=== PATIENT | female | born 1960 | race Caucasian/White ===

== ENCOUNTER → 2018-02-04 | Outpatient (CLI) | payer OTHER ==
[~2018-02-04] MED LIST: AMOCLA875; AMOCLA875 PO; BECL25NI; Bactrim Ds Tab1 EACH PO; CALCAVITDA PO; CEPH500 PO; CHLO25 PO; DULO30; Librium25 MG PO; MOMENI; NAPR500 PO; OXYACE10; OXYACE10 PO; OXYACE5T PO; OXYC20ER; VITAMINS; [UNRECOGNIZED DRUG - REMARK]
== END | disposition home or self-care (01) ==
LOC: LAB EV 10:14 → LAB SHORT 10:14
DX: N39.0 Urinary tract infection, site not specified (principal)
CPT/HCPCS: 87077; 87086; 87186

== ENCOUNTER → 2018-12-05 | Outpatient (CLI) | payer OTHER ==
[2018-12-05 11:01] LABS: BASOPHILS ABSOLUTE AUTO 0.03 K/mm3 (0.00-0.23); BASOPHILS PERCENT AUTO 1 % (0-2); EOSINOPHILS ABSOLUTE AUTO 0.05 K/mm3 (0.00-0.68); EOSINOPHILS PERCENT AUTO 1 % (0-6); Hematocrit 38.4 % (33.0-51.0); Hemoglobin 12.8 g/dL (11.5-16.0); IMMATURE GRAN ABSOLUTE AUTO 0.01 K/mm3 (0.00-0.10); IMMATURE GRAN PERCENT AUTO 0 % (0-1); LYMPHOCYTES ABSOLUTE AUTO 1.64 K/mm3 (0.84-5.20); LYMPHOCYTES PERCENT AUTO 30 % (21-46); MONOCYTES PERCENT AUTO 11 % (4-13); Mean Corpuscular HGB 32.1 pg (26.0-34.0); Mean Corpuscular HGB Conc 33.3 g/dL (31.5-36.5); Mean Corpuscular Volume 96 fL (80-100); Mean Platelet Volume 9.2 fL (9.1-12.4); NEUTROPHILS ABSOLUTE AUTO 3.13 K/mm3 (1.96-9.15); NEUTROPHILS PERCENT AUTO 57 % (41-73); Platelet Count 378 K/mm3 (150-400); RDW Coefficient Variation 12.9 % (11.7-14.2); RDW Standard Deviation 45.5 fL (35.1-46.3); Red Blood Cell Count 3.99 M/mm3 (3.80-5.20); White Blood Cell Count 5.46 K/mm3 (4.00-11.30)
[2018-12-05 11:21] LABS: Alanine Aminotransfer (ALT/SGP 16 U/L (12-78); Albumin, Blood 3.8 g/dL (3.4-5.0); Albumin/Globulin Ratio 0.9 (0.8-1.8); Alk Phos 58 U/L (40-126); Anion Gap 11 mmol/L (6-16); Aspartate Aminotrans (AST/SGOT 18 U/L (12-37); Bilirubin, Total 0.4 mg/dL (0.1-1.0); Blood Urea Nitrogen 10 mg/dL (8-24); Bun/Creatinine Ratio 13.5 (12.0-20.0); CO2, Blood 26 mmol/L (21-32); Calcium, Blood 9.6 mg/dL (8.5-10.1); Chloride, Blood 104 mmol/L (98-108); Creatinine, Blood 0.74 mg/dL (0.40-1.00); Globulin, Blood 4.3 g/dL (2.2-4.0); Glomerular Filtration Rate >60 (60-); Glucose, Blood 105 mg/dL (70-99); Potassium, Blood 3.8 mmol/L (3.5-5.5); Sodium, Blood 141 mmol/L (136-145); Thyroid Stimulating Hormone 1.161 uIU/mL (0.360-4.800); Total Protein, Blood 8.1 g/dL (6.4-8.2)
== END ==
LOC: LAB SHORT 10:55 → LAB EV 10:55
PROVIDERS: Emergency Medicine
DX: R35.0 Frequency of micturition (principal); R53.83 Other fatigue
CPT/HCPCS: 80053; 83036; 84443; 85025

== ENCOUNTER → 2019-01-07 | Outpatient (CLI) | payer OTHER | LOC: LAB SHORT 15:21 → LAB EV 15:21 | DX: R06.02 Shortness of breath (principal) | CPT/HCPCS: 85379 ==

== ENCOUNTER 2019-04-02 14:05 | Emergency (ER) | payer OTHER ==
[~2019-04-02] VITALS: Ht 152.4 cm; Wt 40.8 kg
[~2019-04-02 14:05] MED LIST changes: +Keflex500 MG PO; +Zofran4 MG PO
[2019-04-02 14:39] LABS: BASOPHILS ABSOLUTE AUTO 0.01 K/mm3 (0.00-0.23); BASOPHILS PERCENT AUTO 0 % (0-2); EOSINOPHILS ABSOLUTE AUTO 0.07 K/mm3 (0.00-0.68); EOSINOPHILS PERCENT AUTO 1 % (0-6); Hematocrit 46.3 % (33.0-51.0); Hemoglobin 14.8 g/dL (11.5-16.0); IMMATURE GRAN ABSOLUTE AUTO 0.02 K/mm3 (0.00-0.10); IMMATURE GRAN PERCENT AUTO 0 % (0-1); LYMPHOCYTES ABSOLUTE AUTO 1.15 K/mm3 (0.84-5.20); LYMPHOCYTES PERCENT AUTO 21 % (21-46); MONOCYTES ABSOLUTE AUTO 0.57 K/mm3 (0.16-1.47); MONOCYTES PERCENT AUTO 10 % (4-13); Mean Corpuscular HGB 30.8 pg (26.0-34.0); Mean Corpuscular Volume 97 fL (80-100); Mean Platelet Volume 9.6 fL (9.1-12.4); NEUTROPHILS PERCENT AUTO 68 % (41-73); Platelet Count 358 K/mm3 (150-400); RDW Standard Deviation 53.7 fL (35.1-46.3); White Blood Cell Count 5.62 K/mm3 (4.00-11.30)
[2019-04-02 14:57] LABS: Albumin, Blood 4.4 g/dL (3.4-5.0); Bilirubin, Total 0.2 mg/dL (0.1-1.0); Bun/Creatinine Ratio 16.8 (12.0-20.0); Calcium, Blood 9.3 mg/dL (8.5-10.1); Creatinine, Blood 1.13 mg/dL (0.40-1.00); Globulin, Blood 4.6 g/dL (2.2-4.0); Potassium, Blood 3.9 mmol/L (3.5-5.5)
[2019-04-02] MEDS ORDERED: ONDA4ODT MM (18:48)
== END 2019-04-02 18:56 | disposition home or self-care (01) ==
LOC: ER 14:05
PROVIDERS: Physician Assistant
DX: E86.0 Dehydration (principal); R19.7 Diarrhea, unspecified; R11.0 Nausea
CPT/HCPCS: 36415; 80053; 84484; 85025; 93005; 93010; 96361; 96374; 96375; 99284-25; A9270-GY; J1885; J2405; J7120

== ENCOUNTER → 2019-04-03 | Outpatient (CLI) | payer OTHER ==
[~2019-04-03] MED LIST changes: +ONDA4ODT MM
== END | disposition home or self-care (01) ==
LOC: LAB EV 14:48 → LAB SHORT 14:48
DX: N39.0 Urinary tract infection, site not specified (principal)
CPT/HCPCS: 87077; 87086; 87186

== ENCOUNTER → 2019-06-07 | Outpatient (CLI) | payer OTHER ==
[~2019-06-07] MED LIST changes: +BENADRYL25 MG; +MELO7.5; +Monurol3 GM PO; +OXYB5 PO
== END | disposition home or self-care (01) ==
LOC: LAB SHORT 15:18 → LAB EV 15:18
DX: N12 Tubulo-interstitial nephritis, not specified as acute or chronic (principal)
CPT/HCPCS: 87077; 87086; 87186

== ENCOUNTER 2019-07-10 14:29 | Emergency (ER) | payer OTHER ==
[~2019-07-10] VITALS: Ht 152.4 cm; Wt 43.1 kg
[~2019-07-10 14:29] MED LIST changes: -BENADRYL25 MG; -MELO7.5; -Monurol3 GM PO; -OXYB5 PO
[2019-07-10 15:31] LABS: Source, Urine Clean Catch
[2019-07-10 15:34] LABS: BASOPHILS ABSOLUTE AUTO 0.06 K/mm3 (0.00-0.23); BASOPHILS PERCENT AUTO 1 % (0-2); EOSINOPHILS ABSOLUTE AUTO 0.35 K/mm3 (0.00-0.68); EOSINOPHILS PERCENT AUTO 5 % (0-6); Hematocrit 38.4 % (33.0-51.0); Hemoglobin 12.6 g/dL (11.5-16.0); IMMATURE GRAN ABSOLUTE AUTO 0.01 K/mm3 (0.00-0.10); IMMATURE GRAN PERCENT AUTO 0 % (0-1); LYMPHOCYTES ABSOLUTE AUTO 2.85 K/mm3 (0.84-5.20); LYMPHOCYTES PERCENT AUTO 42 % (21-46); MONOCYTES ABSOLUTE AUTO 0.73 K/mm3 (0.16-1.47); MONOCYTES PERCENT AUTO 11 % (4-13); Mean Corpuscular HGB Conc 32.8 g/dL (31.5-36.5); Mean Corpuscular Volume 98 fL (80-100); Mean Platelet Volume 10.2 fL (9.1-12.4); NEUTROPHILS ABSOLUTE AUTO 2.83 K/mm3 (1.96-9.15); NEUTROPHILS PERCENT AUTO 42 % (41-73); Platelet Count 300 K/mm3 (150-400); RDW Coefficient Variation 13.9 % (11.7-14.2); RDW Standard Deviation 50.4 fL (35.1-46.3); Red Blood Cell Count 3.94 M/mm3 (3.80-5.20); White Blood Cell Count 6.83 K/mm3 (4.00-11.30)
[2019-07-10 15:35] LABS: Bilirubin, Urine Neg (Neg); Blood, Urine 1+ (Neg); Glucose Qualitative, Urine Neg (Neg); Ketones, Urine Neg (Neg); Leukocyte Esterase, Urine 3+ (Neg); Nitrite, Urine Pos (Neg); Protein, Urine Neg (Neg); Specific Gravity, Urine 1.005 (1.003-1.022); Urobilinogen, Urine NORM (Normal); pH, Urine 6.5 (5.0-8.0)
[2019-07-10 15:42] LABS: Appearance, Urine Clear (Clear); Color, Urine Yellow (P-Yellow)
[2019-07-10 15:43] LABS: Bacteria Many /hpf; Squamous Epithelial Cells Few /hpf (Few); White Blood Cells, Urine 50-100 /hpf (0-5)
[2019-07-10 15:44] LABS: Alanine Aminotransfer (ALT/SGP 19 U/L (12-78); Albumin, Blood 3.8 g/dL (3.4-5.0); Alk Phos 63 U/L (50-136); Anion Gap 5 mmol/L (6-16); Aspartate Aminotrans (AST/SGOT 24 U/L (12-37); Bilirubin, Total 0.3 mg/dL (0.1-1.0); Blood Urea Nitrogen 13 mg/dL (8-24); Bun/Creatinine Ratio 19.1 (12.0-20.0); CO2, Blood 24 mmol/L (21-32); Calcium, Blood 9.3 mg/dL (8.5-10.1); Chloride, Blood 109 mmol/L (98-108); Creatinine, Blood 0.68 mg/dL (0.40-1.00); Glomerular Filtration Rate >60 (60-); Glucose, Blood 113 mg/dL (70-99); Sodium, Blood 138 mmol/L (136-145); Total Protein, Blood 7.8 g/dL (6.4-8.2)
[2019-07-10] MEDS ORDERED: OXYB5 PO (16:31)
[2019-07-10] MEDS ORDERED: BENADRYL25 MG (16:31)
[2019-07-10] MEDS ORDERED: MELO7.5 (16:31)
[2019-07-10] MEDS ORDERED: Monurol3 GM PO (17:21)
== END 2019-07-10 17:53 | disposition home or self-care (01) ==
LOC: ER 14:29
PROVIDERS: Physician Assistant
DX: N39.0 Urinary tract infection, site not specified (principal); Z88.8 Allergy status to other drugs, medicaments and biological substances; Z88.5 Allergy status to narcotic agent; Z79.899 Other long term (current) drug therapy
CPT/HCPCS: 36415; 74177; 80053; 81001; 85025; 87077; 87086; 87186; 96365-59; 99284-25; J0696; Q9967

== ENCOUNTER → 2019-10-20 | Outpatient (CLI) | payer OTHER ==
[~2019-10-20] MED LIST changes: +BENADRYL25 MG; +MELO7.5; +Monurol3 GM PO; +OXYB5 PO; +PROM25 PO
== END | disposition home or self-care (01) ==
LOC: LAB SHORT 12:54 → LAB EV 12:54
DX: N39.0 Urinary tract infection, site not specified (principal)
CPT/HCPCS: 87077; 87086; 87186

== ENCOUNTER → 2020-01-06 | Outpatient (CLI) | payer OTHER | END | disposition home or self-care (01) | LOC: LAB SHORT 15:02 → LAB EV 15:02 | DX: N12 Tubulo-interstitial nephritis, not specified as acute or chronic (principal) | CPT/HCPCS: 87077; 87086; 87186 ==

== ENCOUNTER 2020-02-06 17:17 | Inpatient (IN) | payer OTHER ==
[~2020-02-06] VITALS: Ht 152.4 cm; Wt 48.0 kg
[~2020-02-06 17:17] MED LIST changes: -KEFLEX500 MG PO
[2020-02-06] MEDS ORDERED: KEFLEX500 MG PO (17:27)
[2020-02-07 04:53] LABS: BASOPHILS ABSOLUTE AUTO 0.04 K/mm3 (0.00-0.23); BASOPHILS PERCENT AUTO 0 % (0-2); EOSINOPHILS ABSOLUTE AUTO 0.01 K/mm3 (0.00-0.68); EOSINOPHILS PERCENT AUTO 0 % (0-6); Hematocrit 32.1 % (33.0-51.0); Hemoglobin 10.6 g/dL (11.5-16.0); IMMATURE GRAN ABSOLUTE AUTO 0.09 K/mm3 (0.00-0.10); IMMATURE GRAN PERCENT AUTO 1 % (0-1); LYMPHOCYTES ABSOLUTE AUTO 1.53 K/mm3 (0.84-5.20); LYMPHOCYTES PERCENT AUTO 14 % (21-46); MONOCYTES ABSOLUTE AUTO 1.77 K/mm3 (0.16-1.47); MONOCYTES PERCENT AUTO 16 % (4-13); Mean Corpuscular HGB 32.4 pg (26.0-34.0); Mean Corpuscular Volume 98 fL (80-100); Mean Platelet Volume 10.2 fL (9.1-12.4); NEUTROPHILS ABSOLUTE AUTO 7.67 K/mm3 (1.96-9.15); NEUTROPHILS PERCENT AUTO 69 % (41-73); Platelet Count 175 K/mm3 (150-400); RDW Coefficient Variation 14.2 % (11.7-14.2); RDW Standard Deviation 51.6 fL (35.1-46.3); Red Blood Cell Count 3.27 M/mm3 (3.80-5.20); White Blood Cell Count 11.11 K/mm3 (4.00-11.30)
[2020-02-07 05:10] LABS: Anion Gap 4 mmol/L (6-16); Blood Urea Nitrogen 11 mg/dL (8-24); Bun/Creatinine Ratio 13.1 (12.0-20.0); CO2, Blood 24 mmol/L (21-32); Calcium, Blood 7.9 mg/dL (8.5-10.1); Chloride, Blood 108 mmol/L (98-108); Creatinine, Blood 0.84 mg/dL (0.40-1.00); Glomerular Filtration Rate >60 (60-); Glucose, Blood 102 mg/dL (70-99); Potassium, Blood 3.7 mmol/L (3.5-5.5); Sodium, Blood 136 mmol/L (136-145)
--- NOTE | 2020-02-07 06:27 | NUR ---
SHIFT SUMMARY- PT. NEW ADMIT FROM ED. A&OX4, PLEASANT AND COOPERATIVE CARE. C/O PAIN TO RT FLANK, MEDICATED PER EMAR 1X, WITH GOOD RELIEF. PT. HAD TEMP THIS AM OF 102, MEDICATED WITH TYLENOL PER EMAR. PT. INDEPENDENT IN ROOM. RESTED COMFORTABLY THIS SHIFT, NO APPARENT DISTRESS NOTED. DENIES ANY NEEDS AT THIS TIME. CALL LIGHT WITHIN REACH AND SIDE RAILS UP X2. WILL CONT TO MONITOR.
--- NOTE | 2020-02-07 16:29 | NUR ---
PT IS A/OX3, PLEASANT AND COOPERATIVE, THE PT IS UP WIHT MINIMAL ASSIST IN HER ROOM, THE PT APPEARS TO BE BREATHING EASILY ON RA, SOF FAR TODAY THE PT HAS BEEN MEDICATED TIMES 1 FOR RIGHT SIDE FLANT PAIN, THE PT REPORTS THAT THE PAIN HAS DECREASED SINCE ADMISSION, THE PT WAS UP AND INTO THE SHOWER THIS AFTERNOON, CALL LIGHT IN REACH, WILL CONTINUE TO MONITOR AND ASSESS FOR CHANGES
--- NOTE | 2020-02-07 19:45 | NUR ---
ASSUMED CARE OF THE PATIENT. EAN IS AOX3, COOPERATIVE. INDEPENDENT IN THE ROOM. LUNG SOUNDS ARE CLEAR THROUGHOUT. HR REGULAR, SKIN PWD, INTACT. REGULAR BM'S. DOES HAVE FREQUENT URINATION, AND RIGHT FLANK PAIN. REPORT HEADACHE, AND VITALS SHOW FEVER OF 102. SHE STATES SHE ALWAYS KNOWS WHEN SHE GETS A HEADACHE SHE HAS A FEVER. DENIES ANY NAUSEA, ABDOMIN PAIN, CHEST PAIN, CONGESTION, OR ANY OTHER SYMPTOMS OTHER THEN ABEL AND RIGHT FLANK PAIN. WILL MEDICATE FOR PAIN AND FEVER.
--- NOTE | 2020-02-08 05:02 | NUR ---
SHIFT SUMMARY: EAN CONTINUES TO HAVE RIGHT FLANK PAIN, FREQUENT URINATIONS HEADACHES AND FEVERS UP TO 102. TYLENOL AND ULTRAM WAS GIVEN BROUGHT PAIN DOWN TO 2-3, RESOLVED HEADACHE, AND FEVER DOWN TO 98.5. SHE WAS ABLE TO SLEEP FOR SEVERAL HOURS EXCEPT FOR GETTING UP TO USE THE BATHROOM. PAIN REMAINED CONTROLED. REST OF VITALS SHOWED SOME ELEVATION OF HER BP THIS AM. RECHECK WAS BACK TO NORMAL. IV FLUIDS REMAINED INFUSING WITH NO PROBLEMS. SHE DRINKS PLENTY OF FLUIDS. APPITITE IS FAIR. TALKED ABOUT GOING HOME TODAY. WILL REPORT OFF TO DAY SHIFT.
--- NOTE | 2020-02-08 16:54 | NUR ---
PT HAS RESTED ALL DAY. PT PRESENTED WITH FEVER THIS MORNING (101) TYLENOL GIVEN, FEVER DOWN 98 UPON ASSESSMENT. PT HAS HAD NO MORE FEVERS THIS SHIFT. REQUESTED PAIN MEDS X1. SHE IS ALERT AND ORIENTED AND ABLE TO EXPRESS ANY NEEDS. CALL LIGHT WITHIN REACH
--- NOTE | 2020-02-09 06:22 | NUR ---
SHIFT SUMMARY PATIENT ALERT AND ORIENTED X4. MEDICATED FOR PAIN TWICE PER EMAR. IV PATENT AND INFUSING WITH NORMAL SALINE + K AT 100 ML/HR. PATIENT HAS BEEN AFEBRILE ALL SHIFT. BED IN LOWEST POSITION WITH WHEELS LOCKED. CALL LIGHT WITHIN REACH. REPORT GIVEN TO ONCOMING RN.
[2020-02-09] MEDS ORDERED: ACET325 PO (13:29)
[2020-02-09] MEDS ORDERED: LEVO750 PO (13:30)
[2020-02-09] MEDS ORDERED: TRAM50 PO (13:30)
--- NOTE | 2020-02-09 13:50 | NUR ---
REVIEW D'C W/PATIENT. AWARE TO [facility] X 2 AT [facility]. TO GET RIDE TO [employer] TO [employer]. AWARE IF FEELING WORSE TO GO TO [facility]. ANSWER ALL QUESTIONS. CARLENE IN TO TALK TO HER.
== END 2020-02-09 14:05 | disposition home or self-care (01) | DRG 872 ==
LOC: ER 17:17 → MEDS 19:31 → ENPENDDIS 02-09 13:33 → MEDS 02-09 14:05
PROVIDERS: Nurse Practitioner Acute Care; ADMIT Internal Medicine
DX: A41.51 Sepsis due to Escherichia coli [E. coli] (principal); N12 Tubulo-interstitial nephritis, not specified as acute or chronic; E86.0 Dehydration; K52.9 Noninfective gastroenteritis and colitis, unspecified; M19.041 Primary osteoarthritis, right hand; N32.81 Overactive bladder; M19.042 Primary osteoarthritis, left hand; Z87.891 Personal history of nicotine dependence
CPT/HCPCS: 36415; 76770; 80048; 85025; 96365; 96368; 99285-25; A9270; J1650; J2185; J3480

== ENCOUNTER → 2020-02-06 | Outpatient (CLI) | payer OTHER ==
[~2020-02-06] MED LIST changes: +KEFLEX500 MG PO; -MELO7.5; +MOBIC15 MG PO
[2020-02-06 16:23] LABS: BASOPHILS ABSOLUTE AUTO 0.07 K/mm3 (0.00-0.23); BASOPHILS PERCENT AUTO 1 % (0-2); EOSINOPHILS ABSOLUTE AUTO 0.04 K/mm3 (0.00-0.68); EOSINOPHILS PERCENT AUTO 0 % (0-6); Hemoglobin 12.4 g/dL (11.5-16.0); IMMATURE GRAN ABSOLUTE AUTO 0.07 K/mm3 (0.00-0.10); IMMATURE GRAN PERCENT AUTO 1 % (0-1); LYMPHOCYTES PERCENT AUTO 5 % (21-46); MONOCYTES PERCENT AUTO 13 % (4-13); Mean Corpuscular HGB 33.2 pg (26.0-34.0); Mean Corpuscular HGB Conc 34.4 g/dL (31.5-36.5); Mean Corpuscular Volume 96 fL (80-100); Mean Platelet Volume 9.7 fL (9.1-12.4); NEUTROPHILS ABSOLUTE AUTO 10.63 K/mm3 (1.96-9.15); NEUTROPHILS PERCENT AUTO 81 % (41-73); Platelet Count 214 K/mm3 (150-400); RDW Coefficient Variation 14.2 % (11.7-14.2); RDW Standard Deviation 50.6 fL (35.1-46.3); Red Blood Cell Count 3.74 M/mm3 (3.80-5.20); White Blood Cell Count 13.11 K/mm3 (4.00-11.30)
[2020-02-06 16:34] LABS: Alanine Aminotransfer (ALT/SGP 15 U/L (12-78); Albumin, Blood 3.3 g/dL (3.4-5.0); Albumin/Globulin Ratio 0.7 (0.8-1.8); Alk Phos 95 U/L (40-126); Anion Gap 10 mmol/L (6-16); Aspartate Aminotrans (AST/SGOT 16 U/L (12-37); Bilirubin, Total 0.4 mg/dL (0.1-1.0); Blood Urea Nitrogen 18 mg/dL (8-24); Bun/Creatinine Ratio 19.4 (12.0-20.0); CO2, Blood 25 mmol/L (21-32); Calcium, Blood 8.4 mg/dL (8.5-10.1); Chloride, Blood 101 mmol/L (98-108); Creatinine, Blood 0.93 mg/dL (0.40-1.00); Globulin, Blood 4.7 g/dL (2.2-4.0); Glomerular Filtration Rate >60 (60-); Glucose, Blood 119 mg/dL (70-99); Potassium, Blood 3.8 mmol/L (3.5-5.5); Sodium, Blood 136 mmol/L (136-145)
== END ==
LOC: LAB EV 16:19 → LAB SHORT 16:19
PROVIDERS: Emergency Medicine
DX: R10.9 Unspecified abdominal pain (principal)
CPT/HCPCS: 80053; 83605; 85025